=== PATIENT | female | born 1980 | race Caucasian/White ===

== ENCOUNTER 2017-12-23 13:47 | Emergency (ER) | payer OTHER ==
[~2017-12-23] VITALS: Ht 167.6 cm; Wt 90.9 kg
[2017-12-23 13:53] VITALS: Ht 167.6 cm; Wt 90.9 kg
[2017-12-23] MEDS ORDERED: ALLEGRA-D1 TAB.SR . PO (14:42)
[2017-12-23] MEDS ORDERED: AUGMENTIN 875-11 TAB PO (14:42)
[2017-12-23 15:23] VITALS: BP 123/84
== END 2017-12-23 15:26 | disposition home or self-care (01) ==
LOC: D.ER 13:47
DX: J06.9 Acute upper respiratory infection, unspecified (principal); J40 Bronchitis, not specified as acute or chronic; J02.9 Acute pharyngitis, unspecified; R05 Cough; R06.00 Dyspnea, unspecified; R07.81 Pleurodynia; F17.200 Nicotine dependence, unspecified, uncomplicated